=== PATIENT | male | born 1965 | race African-American/Black ===

== ENCOUNTER 2018-01-13 19:42 | Inpatient (IN) | payer OTHER ==
[~2018-01-13] VITALS: Ht 182.9 cm; Wt 76.9 kg
[~2018-01-13 19:42] MED LIST: ABILIFY; ADULT LOW DOSE81 M1 PO; AMOXICILLIN500 M1 PO; ATIVAN0.5 MG PO; B-1100 MG PO; CHLORDIAZEPOXID25 MG PO; DESYREL100 MG PO; FOLIC ACID1 MG PO; GLUCOPHAGE1000 MG; GLUCOPHAGE1000 MG PO; JANUVIA100 MG PO; LANTUS (UNITS)1 UNIT SQ; LANTUS 10100 UNITS/ SC; LANTUS 3 M100 UNITS1 SC; LISINOPRIL10 MG PO; LOMOTIL TABLET1 EACH PO; NOVOLOG 10100 UNITS/ SC; OXYCONTIN10 MG; TRAZADONE; ZOFRAN4 MG PO
[2018-01-13 20:58] LABS: BASOPHIL (%) 0 % (0-1); EOSINOPHIL (%) 0 % (0-5); HEMATOCRIT 27.8 % (38.0-50.0); HEMOGLOBIN 9.2 G/DL (12.5-16.6); IMMATURE GRANULOCYTE (%) 1.3 % (0.0-0.7); LYMPHOCYTE (%) 24.2 % (15-42); MCH 27.3 PG (29.0-34.0); MCHC 33.1 G/DL (30.0-36.0); MCV 82.5 FL (86-99); MONOCYTE (%) 8.1 % (3-12); MONOCYTE COUNT 0.3 K/uL (0-0.8); NEUTROPHIL (%) 66.4 % (45-76); NEUTROPHIL COUNT 2.6 K/uL (1.8-6.4); PLATELET COUNT 115 K/uL (156-360); RBC DIS.WIDTH-CV 14.5 % (11.8-14.6); RBC DIS.WIDTH-SD 43.4 % (39-53); RED BLOOD COUNT 3.37 M/uL (4.00-5.50)
[2018-01-13 21:09] LABS: CHLORIDE 115 mEq/L (99-109); POTASSIUM 4.7 mEq/L (3.7-5.4); SODIUM 138 mEq/L (136-147)
[2018-01-13 21:11] LABS: GLUCOSE 93 mg/dL (70-99)
[2018-01-13 21:15] LABS: CREATININE 5.6 mg/dL (0.6-1.3); GFR ESTIMATE (CALCULATED) 14 mL/min/ (58.99-99999)
[2018-01-13 21:16] LABS: UREA NITROGEN (BUN) 55 mg/dL (9-23)
[2018-01-13 21:18] LABS: TROP-I INTERPRETATION NEGATIVE; TROPONIN-I 0.09 ng/mL (0.0-0.30)
[2018-01-13 22:42] LABS: APPEARANCE CLEAR ((CLEAR)); BILIRUBIN NEGATIVE; BLOOD NEGATIVE; COLOR YELLOW ((YELLOW)); GLUCOSE (STRIP) 50; KETONES NEGATIVE; LEUKOCYTES NEGATIVE; NITRITE NEGATIVE; PROTEIN (STRIP) >=500; SPECIFIC GRAVITY 1.014 (1.000-1.030); UROBILINOGEN 0.2 MG/DL (0.2-1.0)
[2018-01-13 22:49] LABS: BACTERIA RARE /HPF; EPITHELIAL CELLS RARE /HPF; MUCUS TRACE /LPF; WHITE BLOOD CELLS 0-5 /HPF (0-5)
[2018-01-13] MEDS ORDERED: GLIPIZIDE5 MG PO (23:21)
[2018-01-13] MEDS ORDERED: NABI650T PO (23:21)
[2018-01-13] MEDS ORDERED: BYSTOLIC10 MG PO (23:21)
[2018-01-14 06:47] LABS: TROP-I INTERPRETATION NEGATIVE; TROPONIN-I 0.11 ng/mL (0.0-0.30)
[2018-01-14 07:18] VITALS: BP 181/96
[2018-01-14 11:51] VITALS: BP 189/105
[2018-01-14 11:53] LABS: BASOPHIL (%) 0 % (0-1); EOSINOPHIL (%) 0 % (0-5); HEMATOCRIT 28.8 % (38.0-50.0); HEMOGLOBIN 9.2 G/DL (12.5-16.6); IMMATURE GRANULOCYTE (%) 2.9 % (0.0-0.7); LYMPHOCYTE (%) 10.1 % (15-42); LYMPHOCYTE COUNT 0.4 K/uL (1.0-2.8); MCH 26.4 PG (29.0-34.0); MCHC 31.9 G/DL (30.0-36.0); MCV 82.8 FL (86-99); MONOCYTE (%) 1.6 % (3-12); MONOCYTE COUNT 0.1 K/uL (0-0.8); NEUTROPHIL (%) 85.4 % (45-76); NEUTROPHIL COUNT 3.3 K/uL (1.8-6.4); PLATELET COUNT 114 K/uL (156-360); RBC DIS.WIDTH-CV 14.7 % (11.8-14.6); RED BLOOD COUNT 3.48 M/uL (4.00-5.50); WHITE BLOOD COUNT 3.9 K/uL (4.1-10.2)
[2018-01-14 12:27] LABS: TROP-I INTERPRETATION NEGATIVE
[2018-01-14 12:37] LABS: CHLORIDE 112 MEQ/L (99-109); CREATININE 5.4 MG/DL (0.6-1.3); GFR ESTIMATE (CALCULATED) 14 mL/min/ (58.99-99999); GLUCOSE 139 mg/dL (70-99); POTASSIUM 5.3 MEQ/L (3.7-5.4); SODIUM 139 MEQ/L (136-147); UREA NITROGEN (BUN) 50 mg/dL (9-23)
[2018-01-14 15:56] VITALS: BP 171/100
[2018-01-14 20:03] VITALS: BP 152/90
[2018-01-15 01:02] VITALS: BP 156/90
[2018-01-15 03:52] VITALS: BP 134/76
[2018-01-15 06:00] LABS: HEMATOCRIT 25.4 % (38.0-50.0); HEMOGLOBIN 8.2 G/DL (12.5-16.6); MCH 26.5 PG (29.0-34.0); MCHC 32.3 G/DL (30.0-36.0); MCV 82.2 FL (86-99); PLATELET COUNT 108 K/uL (156-360); RBC DIS.WIDTH-CV 14.6 % (11.8-14.6); RBC DIS.WIDTH-SD 43.2 % (39-53); RED BLOOD COUNT 3.09 M/uL (4.00-5.50)
[2018-01-15 06:30] LABS: CHLORIDE 108 MEQ/L (99-109); CREATININE 5.9 MG/DL (0.6-1.3); GFR ESTIMATE (CALCULATED) 13 mL/min/ (58.99-99999); POTASSIUM 4.4 MEQ/L (3.7-5.4); SODIUM 135 MEQ/L (136-147); UREA NITROGEN (BUN) 61 mg/dL (9-23)
[2018-01-15 06:31] LABS: GLUCOSE 73 mg/dL (70-99)
[2018-01-15 09:19] VITALS: BP 142/85
[2018-01-15 13:16] VITALS: BP 140/79
[2018-01-15 16:33] VITALS: BP 162/93
[2018-01-15 20:00] VITALS: BP 172/98
[2018-01-16] VITALS (8 sets, daily range): BP systolic 138–176; BP diastolic 82–104
[2018-01-16 06:19] LABS: HEMATOCRIT 25.7 % (38.0-50.0); HEMOGLOBIN 8.1 G/DL (12.5-16.6); MCH 26.5 PG (29.0-34.0); MCHC 31.5 G/DL (30.0-36.0); PLATELET COUNT 99 K/uL (156-360); RBC DIS.WIDTH-CV 14.6 % (11.8-14.6); RED BLOOD COUNT 3.06 M/uL (4.00-5.50); WHITE BLOOD COUNT 5.1 K/uL (4.1-10.2)
[2018-01-16 06:55] LABS: CHLORIDE 110 MEQ/L (99-109); GFR ESTIMATE (CALCULATED) 13 mL/min/ (58.99-99999); GLUCOSE 95 mg/dL (70-99); POTASSIUM 4.8 MEQ/L (3.7-5.4); SODIUM 136 MEQ/L (136-147); UREA NITROGEN (BUN) 62 mg/dL (9-23)
[2018-01-16 10:30] LABS: C DIFF TOXIN NEGATIVE (NEGATIVE)
[2018-01-16 11:58] LABS: ALBUMIN 2.9 G/DL (3.2-4.8); ALKALINE PHOSPHATASE 60 IU/L (3-129); ALT (GPT) 16 IU/L (3-49); AST (GOT) 35 IU/L (2-34); DIRECT BILIRUBIN 0.1 mg/dL (0.0-0.3); TOTAL BILIRUBIN 0.2 MG/DL (0.0-1.0)
[2018-01-17] VITALS (7 sets, daily range): BP systolic 139–175; BP diastolic 82–98
[2018-01-17 02:24] LABS: UR CREATININE CONCENTRATION 106.7 MG/DL
[2018-01-17 02:30] LABS: APPEARANCE CLEAR ((CLEAR)); BILIRUBIN NEGATIVE; BLOOD SMALL; COLOR YELLOW ((YELLOW)); GLUCOSE (STRIP) 50; KETONES NEGATIVE; LEUKOCYTES NEGATIVE; NITRITE NEGATIVE; PROTEIN (STRIP) 100; SPECIFIC GRAVITY 1.013 (1.000-1.030); UROBILINOGEN 0.2 MG/DL (0.2-1.0)
[2018-01-17 02:52] LABS: BACTERIA RARE /HPF; EPITHELIAL CELLS RARE /HPF; MUCUS TRACE /LPF; UCUL ADDED? NO; WHITE BLOOD CELLS 0-5 /HPF (0-5)
[2018-01-17 10:42] LABS: CHLORIDE 110 MEQ/L (99-109); CREATININE 5.7 MG/DL (0.6-1.3); GFR ESTIMATE (CALCULATED) 13 mL/min/ (58.99-99999); GLUCOSE 126 mg/dL (70-99); POTASSIUM 4.2 MEQ/L (3.7-5.4); SODIUM 134 MEQ/L (136-147); UREA NITROGEN (BUN) 62 mg/dL (9-23)
[2018-01-18 04:18] VITALS: BP 146/85
[2018-01-18 06:27] LABS: BASOPHIL (%) 0 % (0-1); EOSINOPHIL (%) 0 % (0-5); HEMATOCRIT 24.6 % (38.0-50.0); HEMOGLOBIN 8.2 G/DL (12.5-16.6); IMMATURE GRANULOCYTE (%) 1.3 % (0.0-0.7); LYMPHOCYTE (%) 18.5 % (15-42); LYMPHOCYTE COUNT 0.9 K/uL (1.0-2.8); MCH 27.3 PG (29.0-34.0); MCHC 33.3 G/DL (30.0-36.0); MONOCYTE (%) 8.4 % (3-12); MONOCYTE COUNT 0.4 K/uL (0-0.8); NEUTROPHIL (%) 71.8 % (45-76); NEUTROPHIL COUNT 3.3 K/uL (1.8-6.4); PLATELET COUNT 82 K/uL (156-360); RBC DIS.WIDTH-CV 14.2 % (11.8-14.6); RBC DIS.WIDTH-SD 41.9 % (39-53); WHITE BLOOD COUNT 4.6 K/uL (4.1-10.2)
[2018-01-18 06:43] LABS: CHLORIDE 106 MEQ/L (99-109); CREATININE 5.6 MG/DL (0.6-1.3); GFR ESTIMATE (CALCULATED) 14 mL/min/ (58.99-99999); MAGNESIUM 1.7 mg/dl (1.3-2.7); PHOSPHORUS 4.9 mg/dL (2.5-4.9); POTASSIUM 4.3 MEQ/L (3.7-5.4); SODIUM 136 MEQ/L (136-147); UREA NITROGEN (BUN) 63 mg/dL (9-23)
[2018-01-18 06:44] LABS: GLUCOSE 75 mg/dL (70-99)
[2018-01-18 07:49] VITALS: BP 163/97
[2018-01-18 11:00] VITALS: BP 151/75
[2018-01-18 15:14] VITALS: BP 167/89
[2018-01-18 19:26] VITALS: BP 155/89
[2018-01-18 20:46] LABS: Neutrophil Cytoplasmic Aby Negative (Negative)
[2018-01-19] VITALS (7 sets, daily range): BP systolic 128–175; BP diastolic 71–98
[2018-01-19 07:28] LABS: HEMATOCRIT 24.8 % (38.0-50.0); HEMOGLOBIN 8.2 G/DL (12.5-16.6); MCH 27.3 PG (29.0-34.0); MCHC 33.1 G/DL (30.0-36.0); MCV 82.7 FL (86-99); PLATELET COUNT 93 K/uL (156-360); RBC DIS.WIDTH-CV 14.4 % (11.8-14.6); RBC DIS.WIDTH-SD 42.9 % (39-53); WHITE BLOOD COUNT 4.2 K/uL (4.1-10.2)
[2018-01-19 09:33] LABS: CHLORIDE 108 MEQ/L (99-109); CREATININE 5.8 MG/DL (0.6-1.3); GFR ESTIMATE (CALCULATED) 13 mL/min/ (58.99-99999); GLUCOSE 93 mg/dL (70-99); POTASSIUM 4.6 MEQ/L (3.7-5.4); SODIUM 136 MEQ/L (136-147); UREA NITROGEN (BUN) 68 mg/dL (9-23)
[2018-01-19 21:46] LABS: C4 COMPLEMENT 36 MG/DL (10-40)
[2018-01-20] VITALS: BP 134/89
[2018-01-20 00:32] VITALS: BP 129/63
[2018-01-20 01:42] LABS: Cryoglobulin, Qualitative None Detected (None Detected)
[2018-01-20 04:00] VITALS: BP 132/75
[2018-01-20 06:41] LABS: BASOPHIL (%) 0 % (0-1); EOSINOPHIL (%) 0 % (0-5); HEMATOCRIT 24.5 % (38.0-50.0); HEMOGLOBIN 7.9 G/DL (12.5-16.6); IMMATURE GRANULOCYTE (%) 2.5 % (0.0-0.7); LYMPHOCYTE (%) 16.9 % (15-42); LYMPHOCYTE COUNT 0.6 K/uL (1.0-2.8); MCH 26.7 PG (29.0-34.0); MCHC 32.2 G/DL (30.0-36.0); MCV 82.8 FL (86-99); MONOCYTE (%) 11.8 % (3-12); MONOCYTE COUNT 0.4 K/uL (0-0.8); NEUTROPHIL (%) 68.8 % (45-76); NEUTROPHIL COUNT 2.4 K/uL (1.8-6.4); PLATELET COUNT 95 K/uL (156-360); RBC DIS.WIDTH-CV 14.4 % (11.8-14.6); RBC DIS.WIDTH-SD 43.2 % (39-53); RED BLOOD COUNT 2.96 M/uL (4.00-5.50); WHITE BLOOD COUNT 3.6 K/uL (4.1-10.2)
[2018-01-20 07:02] LABS: ALBUMIN 2.7 G/DL (3.2-4.8); CHLORIDE 104 MEQ/L (99-109); CREATININE 5.7 MG/DL (0.6-1.3); GFR ESTIMATE (CALCULATED) 13 mL/min/ (58.99-99999); GLUCOSE 98 mg/dL (70-99); PHOSPHORUS 5.3 mg/dL (2.5-4.9); POTASSIUM 4.7 MEQ/L (3.7-5.4); SODIUM 133 MEQ/L (136-147); UREA NITROGEN (BUN) 76 mg/dL (9-23)
[2018-01-20 07:45] VITALS: BP 143/77
[2018-01-20 07:53] VITALS: BP 129/71
[2018-01-20] MEDS ORDERED: TAMSULOSIN HCL0.4 MG PO (12:07)
[2018-01-20] MEDS ORDERED: NIFEDIPINE ER60 MG PO (12:07)
[2018-01-20] MEDS ORDERED: APRESOLINE50 MG PO (12:07)
[2018-01-20] MEDS ORDERED: LASIX20 MG PO (12:16)
[2018-01-20] MEDS ORDERED: VENTOLIN HFA18 GM IH (12:18)
[2018-01-20] MEDS ORDERED: STIOLTO RESPIMAT4 GM IH (12:18)
[2018-01-20 15:25] VITALS: BP 144/80
== END 2018-01-20 16:18 | disposition home health service (06) | DRG 683 ==
LOC: EME → EDBD 19:42 → EME 19:42 → 5SOUTH 01-14 00:59 → EDOF 01-14 00:59 → ENRESERV 01-14 01:01 → 5SOUTH 01-14 07:12
PROVIDERS: Emergency Medicine; Hospitalist; Internal Medicine; Internal Medicine Nephrology; Physician Assistant Medical; Radiology Diagnostic Radiology
DX: N17.9 Acute kidney failure, unspecified (principal); I12.9 Hypertensive chronic kidney disease with stage 1 through stage 4 chronic kidney disease, or unspecified chronic kidney disease; J43.9 Emphysema, unspecified; I16.1 Hypertensive emergency; F10.10 Alcohol abuse, uncomplicated; F12.90 Cannabis use, unspecified, uncomplicated; E11.9 Type 2 diabetes mellitus without complications; F17.200 Nicotine dependence, unspecified, uncomplicated; E11.22 Type 2 diabetes mellitus with diabetic chronic kidney disease; N18.4 Chronic kidney disease, stage 4 (severe); Z79.84 Long term (current) use of oral hypoglycemic drugs; F20.9 Schizophrenia, unspecified; R80.9 Proteinuria, unspecified; Z91.19 Patient's noncompliance with other medical treatment and regimen; E87.2 Acidosis; H54.7 Unspecified visual loss; I31.3 Pericardial effusion (noninflammatory); J44.1 Chronic obstructive pulmonary disease with (acute) exacerbation; B19.20 Unspecified viral hepatitis C without hepatic coma; Z91.14 Patient's other noncompliance with medication regimen; D61.818 Other pancytopenia; E11.21 Type 2 diabetes mellitus with diabetic nephropathy
CPT/HCPCS: 71045; 71250; 74176; 76770; 77012; 78582; 80048; 80069; 80076; 81003; 82570; 82595 90; 82948; 83520 90; 83605; 83735; 84100; 84156; 84484; 85025; 85027; 85610; 85730; 86021 90; 86038; 86160; 86235; 87070; 87205; 87493; 88305; 88313 90; 88346 90; 88348 90; 93005; 93306; 94640; 94640 76; 94760; 99202; 99281; 99285; A9540; A9567; J0360; J0696; J1644; J1815; J1940; J2930; J7512

== ENCOUNTER 2018-01-24 18:13 | Inpatient (IN) | payer OTHER ==
[~2018-01-24] VITALS: Ht 180.3 cm; Wt 86.8 kg
[~2018-01-24 18:13] MED LIST changes: +APRESOLINE50 MG PO; +BYSTOLIC10 MG PO; +GLIPIZIDE5 MG PO; +LASIX20 MG PO; +NABI650T PO; +NIFEDIPINE ER60 MG PO; +STIOLTO RESPIMAT4 GM IH; +TAMSULOSIN HCL0.4 MG PO; +VENTOLIN HFA18 GM IH
[2018-01-24 19:04] LABS: HEMATOCRIT 21.9 % (38.0-50.0); MCH 27.8 PG (29.0-34.0); MCV 86.9 FL (86-99); PLATELET COUNT 104 K/uL (156-360); RBC DIS.WIDTH-CV 14.5 % (11.8-14.6); RBC DIS.WIDTH-SD 45.7 % (39-53); RED BLOOD COUNT 2.52 M/uL (4.00-5.50); WHITE BLOOD COUNT 3.8 K/uL (4.1-10.2)
[2018-01-24 19:21] LABS: ALBUMIN 2.9 g/dL (3.2-4.8)
[2018-01-24 19:22] LABS: CHLORIDE 112 mEq/L (99-109); POTASSIUM 4.9 mEq/L (3.7-5.4); SODIUM 138 mEq/L (136-147)
[2018-01-24 19:24] LABS: GLUCOSE 177 mg/dL (70-99); TOTAL PROTEIN 5.7 g/dL (6.4-8.3)
[2018-01-24 19:26] LABS: TOTAL BILIRUBIN 0.3 mg/dL (0.0-1.0)
[2018-01-24 19:27] LABS: ALKALINE PHOSPHATASE 88 IU/L (3-129)
[2018-01-24 19:28] LABS: CREATININE 6.5 mg/dL (0.6-1.3); GFR ESTIMATE (CALCULATED) 12 mL/min/ (58.99-99999)
[2018-01-24 19:29] LABS: AST (GOT) 41 IU/L (2-34); UREA NITROGEN (BUN) 81 mg/dL (9-23)
[2018-01-24 19:30] LABS: ALT (GPT) 40 IU/L (3-49)
[2018-01-24] MEDS ORDERED: FLOMAX0.4 MG PO (22:10)
[2018-01-24] MEDS ORDERED: PROCARDIA XL60 MG PO (22:11)
[2018-01-24] MEDS ORDERED: HYDRALAZINE HCL50 MG PO (22:11)
[2018-01-24] MEDS ORDERED: FUROSEMIDE20 MG PO (22:11)
[2018-01-24] MEDS ORDERED: VENTOLIN HFA18 GM IH (22:12)
[2018-01-24 22:40] VITALS: BP 156/94
[2018-01-24 23:06] LABS: FOLIC ACID (FOLATE) 4.2 NG/ML (5.0-22.0)
[2018-01-24 23:28] LABS: IRON 33 MCG/DL (35-150); TRANSFERRIN (TIBC) 221.3 mg/dL (215-380); TRANSFERRIN SATUR. 15 % (20-55)
[2018-01-24 23:50] VITALS: BP 162/86
[2018-01-24 23:53] VITALS: BP 162/86
[2018-01-25] VITALS (12 sets, daily range): BP systolic 129–175; BP diastolic 66–94
[2018-01-25 05:48] LABS: HEMATOCRIT 25.2 % (38.0-50.0); HEMOGLOBIN 7.9 G/DL (12.5-16.6); MCH 27.1 PG (29.0-34.0); MCHC 31.3 G/DL (30.0-36.0); MCV 86.6 FL (86-99); PLATELET COUNT 106 K/uL (156-360); RBC DIS.WIDTH-CV 14.4 % (11.8-14.6); RBC DIS.WIDTH-SD 45.6 % (39-53); RED BLOOD COUNT 2.91 M/uL (4.00-5.50); WHITE BLOOD COUNT 4.4 K/uL (4.1-10.2)
[2018-01-25 06:06] LABS: CHLORIDE 112 MEQ/L (99-109); CREATININE 6.2 MG/DL (0.6-1.3); GFR ESTIMATE (CALCULATED) 12 mL/min/ (58.99-99999); POTASSIUM 4.4 MEQ/L (3.7-5.4); SODIUM 138 MEQ/L (136-147); UREA NITROGEN (BUN) 73 mg/dL (9-23)
[2018-01-25 06:07] LABS: GLUCOSE 102 mg/dL (70-99)
[2018-01-26 01:30] VITALS: BP 120/77
[2018-01-26 04:30] VITALS: BP 148/76
[2018-01-26 05:34] LABS: HEMATOCRIT 27.4 % (38.0-50.0); HEMOGLOBIN 8.9 G/DL (12.5-16.6); MCH 27.8 PG (29.0-34.0); MCHC 32.5 G/DL (30.0-36.0); MCV 85.6 FL (86-99); PLATELET COUNT 103 K/uL (156-360); RBC DIS.WIDTH-CV 14.5 % (11.8-14.6); RBC DIS.WIDTH-SD 44.7 % (39-53); WHITE BLOOD COUNT 3.1 K/uL (4.1-10.2)
[2018-01-26 05:55] LABS: A/G RATIO 0.8 (1.1-1.8); ALBUMIN 2.6 G/DL (3.4-5.0); CHLORIDE 111 MEQ/L (99-109); GFR ESTIMATE (CALCULATED) 13 mL/min/ (58.99-99999); GLOBULINS 3.1 G/DL (2.3-3.5); GLUCOSE 130 mg/dL (70-99); MAGNESIUM 1.8 mg/dl (1.3-2.7); PHOSPHORUS 4.7 mg/dL (2.5-4.9); POTASSIUM 4.9 MEQ/L (3.7-5.4); SODIUM 136 MEQ/L (136-147); TOTAL PROTEIN 5.7 G/DL (6.4-8.2); UREA NITROGEN (BUN) 71 mg/dL (9-23)
[2018-01-26 06:24] LABS: ABS NEUTROPHIL COUNT 1.4; ATYPICAL LYMPHOCYTE 6.1 %; BASOPHILS 0.9 %; EOSINOPHIL ABS CT 0; LYMPHOCYTES 34.8 % (15.0-45.0); MONOCYTES 13.9 % (0-9.0); PLAT.SUFFICIENCY DECREASED; SEG.NEUTROPHILS 44.3 % (46.0-76.0)
[2018-01-26 10:28] VITALS: BP 177/95
[2018-01-26 10:59] LABS: HEPATITIS B SURFACE ANTIGEN Nonreactive
[2018-01-26 11:01] LABS: ANTI-HEPATITIS A VIRUS (IGM) Nonreactive
[2018-01-26 11:02] LABS: ANTI-HEPATITIS B CORE (IGM) Nonreactive; HIV-1/2 AB/AG COMBO Nonreactive
[2018-01-26 11:32] LABS: HEPATITIS B SURFACE ANTIGEN Nonreactive
[2018-01-26 11:37] LABS: HEPATITIS B SURFACE ANTIBODY REACTIVE
[2018-01-26 11:38] LABS: HEPATITIS C ANTIBODY REACTIVE
[2018-01-26 16:53] VITALS: BP 177/76
[2018-01-26 19:05] VITALS: BP 146/80
[2018-01-27 00:31] VITALS: BP 171/85
[2018-01-27 04:01] VITALS: BP 164/75
[2018-01-27 07:50] VITALS: BP 149/79
[2018-01-27 08:55] LABS: BASOPHIL (%) 0.3 % (0-1); EOSINOPHIL (%) 0 % (0-5); HEMATOCRIT 27.3 % (38.0-50.0); LYMPHOCYTE (%) 34.3 % (15-42); LYMPHOCYTE COUNT 1.4 K/uL (1.0-2.8); MCH 28.3 PG (29.0-34.0); MCV 85.8 FL (86-99); MONOCYTE COUNT 1.1 K/uL (0-0.8); NEUTROPHIL (%) 35.4 % (45-76); NEUTROPHIL COUNT 1.4 K/uL (1.8-6.4); NRBC (%) 1.5 /100 WBC (0-0); PLATELET COUNT 81 K/uL (156-360); RBC DIS.WIDTH-CV 14.4 % (11.8-14.6); RBC DIS.WIDTH-SD 45.1 % (39-53); RED BLOOD COUNT 3.18 M/uL (4.00-5.50)
[2018-01-27 09:14] LABS: ALBUMIN 2.7 G/DL (3.2-4.8); CHLORIDE 107 MEQ/L (99-109); GLUCOSE 109 mg/dL (70-99); PHOSPHORUS 3.3 mg/dL (2.5-4.9); POTASSIUM 4.3 MEQ/L (3.7-5.4); SODIUM 137 MEQ/L (136-147); UREA NITROGEN (BUN) 48 mg/dL (9-23)
[2018-01-27 09:27] LABS: CREATININE 4.6 MG/DL (0.6-1.3); GFR ESTIMATE (CALCULATED) 17 mL/min/ (58.99-99999)
[2018-01-27 11:21] VITALS: BP 173/88
[2018-01-27] MEDS ORDERED: NABI650T PO (13:48)
[2018-01-27] MEDS ORDERED: BYSTOLIC10 MG PO (13:48)
[2018-01-27] MEDS ORDERED: GLIPIZIDE5 MG PO (13:48)
[2018-01-27] MEDS ORDERED: LASIX40 MG PO (13:49)
[2018-01-27 14:41] LABS: ALBUMIN 2.59 G/DL (3.6-4.9); ALPHA-1 GLOBULIN 0.35 G/DL (0.15-0.40); ALPHA-2 GLOBULIN 0.97 G/DL (0.45-0.85); BETA-GLOBULIN 0.63 G/DL (0.65-1.15); GAMMA-GLOBULIN 1.16 G/DL (0.60-1.35)
== END 2018-01-27 15:02 | disposition home health service (06) | DRG 683 ==
LOC: EME 18:13 → EDOF 22:26 → 5WEST 22:26 → CANRESERV 22:28 → ENRESERV 22:28 → 5WEST 23:31
PROVIDERS: Emergency Medicine; Hospitalist; Internal Medicine Nephrology; Physician Assistant
PROC: 30233N1 Transfusion of Nonautologous Red Blood Cells into Peripheral Vein, Percutaneous Approach (ICD-10-PCS; principal; 2018-01-24)
PROC: 02HV33Z Insertion of Infusion Device into Superior Vena Cava, Percutaneous Approach (ICD-10-PCS; 2018-01-25)
PROC: 5A1D70Z Performance of Urinary Filtration, Intermittent, Less than 6 Hours Per Day (ICD-10-PCS; 2018-01-26)
DX: N17.9 Acute kidney failure, unspecified (principal); I12.0 Hypertensive chronic kidney disease with stage 5 chronic kidney disease or end stage renal disease; N18.6 End stage renal disease; E11.22 Type 2 diabetes mellitus with diabetic chronic kidney disease; E11.21 Type 2 diabetes mellitus with diabetic nephropathy; N05.1 Unspecified nephritic syndrome with focal and segmental glomerular lesions; E87.2 Acidosis; D63.1 Anemia in chronic kidney disease; J44.9 Chronic obstructive pulmonary disease, unspecified; E78.5 Hyperlipidemia, unspecified; H54.8 Legal blindness, as defined in USA; Z86.19 Personal history of other infectious and parasitic diseases; Z79.84 Long term (current) use of oral hypoglycemic drugs; F17.210 Nicotine dependence, cigarettes, uncomplicated
CPT/HCPCS: 71045; 71250; 80048; 80053; 80069; 80074; 82607; 82746; 82948; 83540; 83735; 83883 90; 84100; 84165; 84466; 85025; 85027; 86706; 86850; 86900; 86901; 86920; 87340; 87389; 93005; 99281; 99285; C1788; G0378; J0690; J0881; J1644; J1756; J1815; J2250; P9016

== ENCOUNTER 2018-02-06 13:59 | Inpatient (IN) | payer OTHER ==
[~2018-02-06] VITALS: Ht 180.3 cm; Wt 78.0 kg
[~2018-02-06 13:59] MED LIST changes: +FLOMAX0.4 MG PO; +FUROSEMIDE20 MG PO; +HYDRALAZINE HCL50 MG PO; +LASIX40 MG PO; +PROCARDIA XL60 MG PO
[2018-02-06 15:03] LABS: MCH 27.2 PG (29.0-34.0); MCHC 32.3 G/DL (30.0-36.0); MCV 84.2 FL (86-99); PLATELET COUNT 75 K/uL (156-360); RBC DIS.WIDTH-CV 13.1 % (11.8-14.6); RBC DIS.WIDTH-SD 39.8 % (39-53); RED BLOOD COUNT 3.68 M/uL (4.00-5.50); WHITE BLOOD COUNT 2.9 K/uL (4.1-10.2)
[2018-02-06 15:12] LABS: ALBUMIN 2.9 g/dL (3.2-4.8); CHLORIDE 101 mEq/L (99-109); SODIUM 139 mEq/L (136-147)
[2018-02-06 15:14] LABS: GLUCOSE 68 mg/dL (70-99); TOTAL PROTEIN 6.4 g/dL (6.4-8.3)
[2018-02-06 15:16] LABS: TOTAL BILIRUBIN 0.3 mg/dL (0.0-1.0)
[2018-02-06 15:18] LABS: ALKALINE PHOSPHATASE 80 IU/L (3-129); GFR ESTIMATE (CALCULATED) 20 mL/min/ (58.99-99999)
[2018-02-06 15:19] LABS: AST (GOT) 29 IU/L (2-34); UREA NITROGEN (BUN) 17 mg/dL (9-23)
[2018-02-06 15:20] LABS: DIRECT BILIRUBIN 0.2 mg/dL (0.0-0.3)
[2018-02-06 15:21] LABS: ALT (GPT) 14 IU/L (3-49)
[2018-02-06 15:24] LABS: TROP-I INTERPRETATION INDETERMINATE; TROPONIN-I 0.42 ng/mL (0.0-0.30)
[2018-02-06] MEDS ORDERED: FLAGYL500 MG PO (17:58)
[2018-02-06] MEDS ORDERED: METFORMIN HCL1000 MG PO (17:59)
[2018-02-06 20:10] LABS: C DIFF TOXIN NEGATIVE (NEGATIVE)
[2018-02-06 21:08] VITALS: BP 203/93
[2018-02-06 23:36] VITALS: BP 199/111
[2018-02-07 00:35] VITALS: BP 178/97
[2018-02-07 03:10] LABS: HEMATOCRIT 27.7 % (38.0-50.0); HEMOGLOBIN 9.2 G/DL (12.5-16.6); MCH 27.5 PG (29.0-34.0); MCHC 33.2 G/DL (30.0-36.0); MCV 82.7 FL (86-99); PLATELET COUNT 77 K/uL (156-360); RBC DIS.WIDTH-CV 13.1 % (11.8-14.6); RBC DIS.WIDTH-SD 39.8 % (39-53); RED BLOOD COUNT 3.35 M/uL (4.00-5.50); WHITE BLOOD COUNT 2.6 K/uL (4.1-10.2)
[2018-02-07 03:18] LABS: CHLORIDE 100 mEq/L (99-109); POTASSIUM 3.4 mEq/L (3.7-5.4)
[2018-02-07 03:19] LABS: SODIUM 138 mEq/L (136-147)
[2018-02-07 03:24] LABS: CREATININE 4.6 mg/dL (0.6-1.3); GFR ESTIMATE (CALCULATED) 17 mL/min/ (58.99-99999)
[2018-02-07 03:25] LABS: UREA NITROGEN (BUN) 21 mg/dL (9-23)
[2018-02-07 03:28] LABS: GLUCOSE 114 mg/dL (70-99)
[2018-02-07 03:33] LABS: TROP-I INTERPRETATION INDETERMINATE; TROPONIN-I 0.42 ng/mL (0.0-0.30)
[2018-02-07 03:39] LABS: TROP-I INTERPRETATION INDETERMINATE; TROPONIN-I 0.42 ng/mL (0.0-0.30)
[2018-02-07 04:14] VITALS: BP 138/72
[2018-02-07 08:37] VITALS: BP 155/78
[2018-02-07 11:32] VITALS: BP 120/72
[2018-02-07 12:34] LABS: TROP-I INTERPRETATION INDETERMINATE; TROPONIN-I 0.38 ng/mL (0.0-0.30)
[2018-02-07 15:14] VITALS: BP 120/68
[2018-02-07 20:12] VITALS: BP 152/80
[2018-02-08 00:06] VITALS: BP 145/81
[2018-02-08 04:05] VITALS: BP 151/85
[2018-02-08 08:13] LABS: BASOPHIL (%) 0 % (0-1); EOSINOPHIL (%) 0 % (0-5); HEMATOCRIT 27.7 % (38.0-50.0); HEMOGLOBIN 8.8 G/DL (12.5-16.6); IMMATURE GRANULOCYTE (%) 2.6 % (0.0-0.7); LYMPHOCYTE (%) 27.6 % (15-42); MCH 26.4 PG (29.0-34.0); MCHC 31.8 G/DL (30.0-36.0); MCV 83.2 FL (86-99); MONOCYTE (%) 32.6 % (3-12); MONOCYTE COUNT 1.1 K/uL (0-0.8); NEUTROPHIL (%) 37.2 % (45-76); NEUTROPHIL COUNT 1.3 K/uL (1.8-6.4); PLATELET COUNT 90 K/uL (156-360); RBC DIS.WIDTH-CV 13.1 % (11.8-14.6); RBC DIS.WIDTH-SD 39.5 % (39-53); RED BLOOD COUNT 3.33 M/uL (4.00-5.50); WHITE BLOOD COUNT 3.4 K/uL (4.1-10.2)
[2018-02-08 08:47] LABS: ALBUMIN 2.5 G/DL (3.2-4.8); CHLORIDE 99 MEQ/L (99-109); POTASSIUM 3.7 MEQ/L (3.7-5.4); SODIUM 134 MEQ/L (136-147)
[2018-02-08 08:53] LABS: GFR ESTIMATE (CALCULATED) 14 mL/min/ (58.99-99999); UREA NITROGEN (BUN) 27 mg/dL (9-23)
[2018-02-08 08:57] LABS: CREATININE 5.6 MG/DL (0.6-1.3); GLUCOSE 182 mg/dL (70-99)
[2018-02-08 16:15] VITALS: BP 130/82
[2018-02-08 20:16] VITALS: BP 125/62
[2018-02-09] VITALS (7 sets, daily range): BP systolic 126–1329; BP diastolic 67–97
[2018-02-09 06:12] LABS: BASOPHIL (%) 0.3 % (0-1); EOSINOPHIL (%) 0 % (0-5); HEMOGLOBIN 9.6 G/DL (12.5-16.6); IMMATURE GRANULOCYTE (%) 3.4 % (0.0-0.7); LYMPHOCYTE (%) 13.8 % (15-42); LYMPHOCYTE COUNT 0.5 K/uL (1.0-2.8); MCH 26.7 PG (29.0-34.0); MCV 83.6 FL (86-99); MONOCYTE (%) 15.7 % (3-12); MONOCYTE COUNT 0.6 K/uL (0-0.8); NEUTROPHIL (%) 66.8 % (45-76); NEUTROPHIL COUNT 2.4 K/uL (1.8-6.4); PLATELET COUNT 80 K/uL (156-360); RBC DIS.WIDTH-SD 39.7 % (39-53); RED BLOOD COUNT 3.59 M/uL (4.00-5.50); WHITE BLOOD COUNT 3.6 K/uL (4.1-10.2)
[2018-02-09 06:40] LABS: CHLORIDE 98 MEQ/L (99-109); GFR ESTIMATE (CALCULATED) 22 mL/min/ (58.99-99999); POTASSIUM 3.9 MEQ/L (3.7-5.4); SODIUM 134 MEQ/L (136-147); UREA NITROGEN (BUN) 15 mg/dL (9-23)
[2018-02-09 06:43] LABS: CREATININE 3.7 MG/DL (0.6-1.3); GLUCOSE 101 mg/dL (70-99)
[2018-02-10 03:58] VITALS: BP 144/82
[2018-02-10 07:21] VITALS: BP 135/80
[2018-02-10 08:24] LABS: BASOPHIL (%) 0.3 % (0-1); EOSINOPHIL (%) 0 % (0-5); HEMATOCRIT 30.2 % (38.0-50.0); HEMOGLOBIN 9.7 G/DL (12.5-16.6); IMMATURE GRANULOCYTE (%) 2.2 % (0.0-0.7); LYMPHOCYTE (%) 21.7 % (15-42); LYMPHOCYTE COUNT 0.7 K/uL (1.0-2.8); MCH 26.9 PG (29.0-34.0); MCHC 32.1 G/DL (30.0-36.0); MCV 83.7 FL (86-99); MONOCYTE (%) 34.1 % (3-12); MONOCYTE COUNT 1.1 K/uL (0-0.8); NEUTROPHIL (%) 41.7 % (45-76); NEUTROPHIL COUNT 1.4 K/uL (1.8-6.4); PLATELET COUNT 103 K/uL (156-360); RBC DIS.WIDTH-CV 12.8 % (11.8-14.6); RBC DIS.WIDTH-SD 39.1 % (39-53); RED BLOOD COUNT 3.61 M/uL (4.00-5.50); WHITE BLOOD COUNT 3.2 K/uL (4.1-10.2)
[2018-02-10 08:31] LABS: CHLORIDE 98 MEQ/L (99-109); GFR ESTIMATE (CALCULATED) 16 mL/min/ (58.99-99999); GLUCOSE 125 mg/dL (70-99); POTASSIUM 3.4 MEQ/L (3.7-5.4); SODIUM 132 MEQ/L (136-147)
[2018-02-10 08:35] LABS: UREA NITROGEN (BUN) 23 mg/dL (9-23)
[2018-02-10 08:36] LABS: CREATININE 4.9 MG/DL (0.6-1.3)
[2018-02-10 15:52] VITALS: BP 159/85
[2018-02-10 19:00] VITALS: BP 123/75
[2018-02-10 23:49] VITALS: BP 124/81
[2018-02-11 04:03] VITALS: BP 135/74
[2018-02-11 07:46] VITALS: BP 129/63
[2018-02-11 11:55] VITALS: BP 170/71
[2018-02-11 16:13] VITALS: BP 128/76
[2018-02-12 06:02] LABS: BASOPHIL (%) 0.7 % (0-1); EOSINOPHIL (%) 0 % (0-5); HEMATOCRIT 30.9 % (38.0-50.0); HEMOGLOBIN 9.8 G/DL (12.5-16.6); IMMATURE GRANULOCYTE (%) 4.3 % (0.0-0.7); LYMPHOCYTE (%) 32.8 % (15-42); MCH 26.5 PG (29.0-34.0); MCHC 31.7 G/DL (30.0-36.0); MCV 83.5 FL (86-99); MONOCYTE (%) 22.7 % (3-12); MONOCYTE COUNT 0.7 K/uL (0-0.8); NEUTROPHIL (%) 39.5 % (45-76); NEUTROPHIL COUNT 1.2 K/uL (1.8-6.4); PLATELET COUNT 116 K/uL (156-360); RBC DIS.WIDTH-CV 13.2 % (11.8-14.6); RBC DIS.WIDTH-SD 40.3 % (39-53)
[2018-02-12 06:30] LABS: CHLORIDE 101 MEQ/L (99-109); CREATININE 5.2 MG/DL (0.6-1.3); GFR ESTIMATE (CALCULATED) 15 mL/min/ (58.99-99999); GLUCOSE 130 mg/dL (70-99); SODIUM 136 MEQ/L (136-147); UREA NITROGEN (BUN) 25 mg/dL (9-23)
[2018-02-12 07:08] VITALS: BP 140/79
[2018-02-12 12:46] VITALS: BP 141/78
[2018-02-12 16:14] VITALS: BP 128/64
[2018-02-12 20:00] VITALS: BP 158/81
[2018-02-12 23:36] VITALS: BP 135/70
[2018-02-13 03:38] VITALS: BP 129/87
[2018-02-13 06:27] LABS: BASOPHIL (%) 0.3 % (0-1); EOSINOPHIL (%) 0 % (0-5); HEMATOCRIT 30.8 % (38.0-50.0); HEMOGLOBIN 10.1 G/DL (12.5-16.6); IMMATURE GRANULOCYTE (%) 3.1 % (0.0-0.7); LYMPHOCYTE (%) 26.6 % (15-42); MCHC 32.8 G/DL (30.0-36.0); MCV 82.4 FL (86-99); MONOCYTE (%) 21.8 % (3-12); MONOCYTE COUNT 0.8 K/uL (0-0.8); NEUTROPHIL (%) 48.2 % (45-76); NEUTROPHIL COUNT 1.7 K/uL (1.8-6.4); PLATELET COUNT 124 K/uL (156-360); RBC DIS.WIDTH-CV 13.2 % (11.8-14.6); RBC DIS.WIDTH-SD 39.8 % (39-53); RED BLOOD COUNT 3.74 M/uL (4.00-5.50); WHITE BLOOD COUNT 3.6 K/uL (4.1-10.2)
[2018-02-13 06:36] LABS: CHLORIDE 98 MEQ/L (99-109); GFR ESTIMATE (CALCULATED) 20 mL/min/ (58.99-99999); GLUCOSE 138 mg/dL (70-99); POTASSIUM 3.9 MEQ/L (3.7-5.4); SODIUM 134 MEQ/L (136-147); UREA NITROGEN (BUN) 17 mg/dL (9-23)
[2018-02-13 07:37] VITALS: BP 120/63
[2018-02-13 07:54] LABS: C DIFF TOXIN ND (NEGATIVE)
[2018-02-13 11:31] VITALS: BP 154/76
[2018-02-13 16:34] VITALS: BP 149/81
[2018-02-13 21:00] VITALS: BP 152/80
[2018-02-13 23:39] VITALS: BP 141/79
[2018-02-14 03:25] VITALS: BP 170/84
[2018-02-14 06:23] LABS: BASOPHIL (%) 0.3 % (0-1); EOSINOPHIL (%) 0.3 % (0-5); HEMATOCRIT 29.1 % (38.0-50.0); HEMOGLOBIN 9.5 G/DL (12.5-16.6); IMMATURE GRANULOCYTE (%) 3.2 % (0.0-0.7); LYMPHOCYTE (%) 33.6 % (15-42); LYMPHOCYTE COUNT 1.2 K/uL (1.0-2.8); MCH 26.8 PG (29.0-34.0); MCHC 32.6 G/DL (30.0-36.0); MCV 82.2 FL (86-99); MONOCYTE (%) 28.7 % (3-12); NEUTROPHIL (%) 33.9 % (45-76); NEUTROPHIL COUNT 1.2 K/uL (1.8-6.4); PLATELET COUNT 131 K/uL (156-360); RBC DIS.WIDTH-CV 13.3 % (11.8-14.6); RED BLOOD COUNT 3.54 M/uL (4.00-5.50); WHITE BLOOD COUNT 3.5 K/uL (4.1-10.2)
[2018-02-14 06:44] LABS: CHLORIDE 102 MEQ/L (99-109); GFR ESTIMATE (CALCULATED) 15 mL/min/ (58.99-99999); GLUCOSE 128 mg/dL (70-99); POTASSIUM 3.6 MEQ/L (3.7-5.4); SODIUM 139 MEQ/L (136-147)
[2018-02-14 06:48] LABS: CREATININE 5.2 MG/DL (0.6-1.3); UREA NITROGEN (BUN) 26 mg/dL (9-23)
[2018-02-14 09:50] VITALS: BP 180/89
[2018-02-14 11:34] VITALS: BP 161/78
[2018-02-14 15:59] VITALS: BP 157/79
[2018-02-14 20:34] VITALS: BP 137/75
[2018-02-14 23:26] VITALS: BP 139/84
[2018-02-15 04:05] VITALS: BP 127/76
[2018-02-15 07:48] VITALS: BP 116/70
[2018-02-15 11:40] LABS: CHLORIDE 102 MEQ/L (99-109); CREATININE 5.6 MG/DL (0.6-1.3); GFR ESTIMATE (CALCULATED) 14 mL/min/ (58.99-99999); GLUCOSE 210 mg/dL (70-99); POTASSIUM 3.6 MEQ/L (3.7-5.4); SODIUM 137 MEQ/L (136-147); UREA NITROGEN (BUN) 32 mg/dL (9-23)
[2018-02-15 11:52] VITALS: BP 131/76
[2018-02-15 14:28] LABS: C DIFF TOXIN ND (NEGATIVE)
[2018-02-15 16:29] VITALS: BP 131/73
[2018-02-15 19:45] VITALS: BP 115/76
[2018-02-15 23:41] VITALS: BP 148/83
[2018-02-16 03:36] VITALS: BP 152/84
[2018-02-16 06:28] LABS: BASOPHIL (%) 0.6 % (0-1); EOSINOPHIL (%) 0 % (0-5); HEMATOCRIT 28.6 % (38.0-50.0); IMMATURE GRANULOCYTE (%) 3.1 % (0.0-0.7); LYMPHOCYTE (%) 40.8 % (15-42); LYMPHOCYTE COUNT 1.5 K/uL (1.0-2.8); MCH 26.5 PG (29.0-34.0); MCHC 31.5 G/DL (30.0-36.0); MCV 84.1 FL (86-99); MONOCYTE (%) 17.2 % (3-12); MONOCYTE COUNT 0.6 K/uL (0-0.8); NEUTROPHIL (%) 38.3 % (45-76); NEUTROPHIL COUNT 1.4 K/uL (1.8-6.4); PLATELET COUNT 144 K/uL (156-360); RBC DIS.WIDTH-CV 13.4 % (11.8-14.6); RBC DIS.WIDTH-SD 40.9 % (39-53); WHITE BLOOD COUNT 3.6 K/uL (4.1-10.2)
[2018-02-16 07:01] LABS: CHLORIDE 104 MEQ/L (99-109); CREATININE 5.8 MG/DL (0.6-1.3); GFR ESTIMATE (CALCULATED) 13 mL/min/ (58.99-99999); POTASSIUM 4.3 MEQ/L (3.7-5.4); SODIUM 137 MEQ/L (136-147); UREA NITROGEN (BUN) 38 mg/dL (9-23)
[2018-02-16 07:05] LABS: GLUCOSE 97 mg/dL (70-99)
[2018-02-16 10:56] VITALS: BP 132/66
[2018-02-16 11:01] VITALS: BP 149/99
[2018-02-16 15:29] VITALS: BP 103/61
[2018-02-16 19:30] VITALS: BP 103/51
[2018-02-16 23:28] VITALS: BP 133/84
[2018-02-17 04:46] VITALS: BP 176/91
[2018-02-17 07:07] VITALS: BP 131/79
[2018-02-17 08:08] LABS: BASOPHIL (%) 0.4 % (0-1); EOSINOPHIL (%) 0 % (0-5); HEMATOCRIT 28.5 % (38.0-50.0); HEMOGLOBIN 9.1 G/DL (12.5-16.6); IMMATURE GRANULOCYTE (%) 4.9 % (0.0-0.7); LYMPHOCYTE (%) 40.7 % (15-42); MCH 26.9 PG (29.0-34.0); MCHC 31.9 G/DL (30.0-36.0); MCV 84.3 FL (86-99); MONOCYTE (%) 17.5 % (3-12); MONOCYTE COUNT 0.4 K/uL (0-0.8); NEUTROPHIL (%) 36.5 % (45-76); NEUTROPHIL COUNT 0.9 K/uL (1.8-6.4); PLATELET COUNT 186 K/uL (156-360); RBC DIS.WIDTH-CV 13.4 % (11.8-14.6); RBC DIS.WIDTH-SD 41.8 % (39-53); RED BLOOD COUNT 3.38 M/uL (4.00-5.50); WHITE BLOOD COUNT 2.5 K/uL (4.1-10.2)
[2018-02-17 08:29] LABS: ALBUMIN 2.6 G/DL (3.2-4.8); CHLORIDE 106 MEQ/L (99-109); GFR ESTIMATE (CALCULATED) 13 mL/min/ (58.99-99999); PHOSPHORUS 4.2 mg/dL (2.5-4.9); POTASSIUM 3.7 MEQ/L (3.7-5.4); SODIUM 138 MEQ/L (136-147); UREA NITROGEN (BUN) 42 mg/dL (9-23)
[2018-02-17 08:31] LABS: GLUCOSE 171 mg/dL (70-99)
[2018-02-17] MEDS ORDERED: CIPROFLOXACIN500 M1 PO (13:51)
[2018-02-17] MEDS ORDERED: BYSTOLIC5 MG PO (13:52)
[2018-02-17] MEDS ORDERED: NIFEDIPINE ER60 MG PO (13:52)
[2018-02-17 15:02] VITALS: BP 133/74
== END 2018-02-17 16:10 | disposition home or self-care (01) | DRG 252 ==
LOC: EME 13:59 → 5WEST 18:36 → EDOF 18:36 → ENRESERV 18:40 → 5WEST 20:58 → ENRESERV 02-17 07:26 → 4SOUTH 02-17 07:46
PROVIDERS: Family Medicine; Hospitalist; Internal Medicine; Internal Medicine Cardiovascular Disease; Internal Medicine Nephrology; Nurse Practitioner Family; Physician Assistant Medical
DX: T82.7XXA Infection and inflammatory reaction due to other cardiac and vascular devices, implants and grafts, initial encounter (principal); A41.59 Other Gram-negative sepsis; N18.6 End stage renal disease; Y83.2 Surgical operation with anastomosis, bypass or graft as the cause of abnormal reaction of the patient, or of later complication, without mention of misadventure at the time of the procedure; F43.20 Adjustment disorder, unspecified; Z99.2 Dependence on renal dialysis; D61.818 Other pancytopenia; R74.8 Abnormal levels of other serum enzymes; E11.22 Type 2 diabetes mellitus with diabetic chronic kidney disease; H54.8 Legal blindness, as defined in USA; I27.20 Pulmonary hypertension, unspecified; I35.1 Nonrheumatic aortic (valve) insufficiency; Z91.19 Patient's noncompliance with other medical treatment and regimen; E11.21 Type 2 diabetes mellitus with diabetic nephropathy; E87.6 Hypokalemia; I12.0 Hypertensive chronic kidney disease with stage 5 chronic kidney disease or end stage renal disease; I49.3 Ventricular premature depolarization; D63.1 Anemia in chronic kidney disease; F17.200 Nicotine dependence, unspecified, uncomplicated; F20.9 Schizophrenia, unspecified; I16.1 Hypertensive emergency; I25.2 Old myocardial infarction; Z87.01 Personal history of pneumonia (recurrent)
CPT/HCPCS: 71045; 74176; 78452; 78999; 80048; 80069; 80076; 81003; 82948; 83605; 83880; 84484; 85025; 85027; 87040; 87077; 87177; 87186; 87493; 87502; 87506; 87801; 93005; 93017; 99281; 99285; A9500; C1788; G0378; G8978 GP CJ; G8979 GP CI; J0330; J0690; J0692; J0881; J1644; J1815; J2250; J2785; J3370

== ENCOUNTER 2018-02-23 17:23 | Observation (INO) | payer OTHER ==
[~2018-02-23] VITALS: Ht 180.3 cm; Wt 72.4 kg
[~2018-02-23 17:23] MED LIST changes: +BYSTOLIC5 MG PO; +CIPROFLOXACIN500 M1 PO; +FLAGYL500 MG PO; +METFORMIN HCL1000 MG PO
[2018-02-23 18:47] LABS: HEMOGLOBIN 9.7 G/DL (12.5-16.6); MCH 26.8 PG (29.0-34.0); MCHC 32.3 G/DL (30.0-36.0); MCV 82.9 FL (86-99); PLATELET COUNT 138 K/uL (156-360); RBC DIS.WIDTH-CV 13.5 % (11.8-14.6); RBC DIS.WIDTH-SD 40.7 % (39-53); RED BLOOD COUNT 3.62 M/uL (4.00-5.50); WHITE BLOOD COUNT 3.4 K/uL (4.1-10.2)
[2018-02-23 18:58] LABS: CHLORIDE 105 mEq/L (99-109); SODIUM 140 mEq/L (136-147)
[2018-02-23 19:00] LABS: GLUCOSE 106 mg/dL (70-99); TOTAL PROTEIN 7.1 g/dL (6.4-8.3)
[2018-02-23 19:02] LABS: TOTAL BILIRUBIN 0.2 mg/dL (0.0-1.0)
[2018-02-23 19:04] LABS: ALKALINE PHOSPHATASE 97 IU/L (3-129); CREATININE 5.1 mg/dL (0.6-1.3); GFR ESTIMATE (CALCULATED) 15 mL/min/ (58.99-99999)
[2018-02-23 19:05] LABS: UREA NITROGEN (BUN) 29 mg/dL (9-23)
[2018-02-23 19:06] LABS: AST (GOT) 20 IU/L (2-34)
[2018-02-23 19:07] LABS: ALT (GPT) 7 IU/L (3-49)
[2018-02-23 19:10] LABS: TROP-I INTERPRETATION NEGATIVE; TROPONIN-I 0.14 ng/mL (0.0-0.30)
[2018-02-23] MEDS ORDERED: CIPRO500 MG PO (20:03)
[2018-02-23] MEDS ORDERED: FLAGYL500 MG PO (20:05)
[2018-02-23] MEDS ORDERED: NOVOLOG 10100 UNITS/ SC (20:06)
[2018-02-23 23:12] LABS: HDL CHOLESTEROL 56 MG/DL (Desirable>=40); NON-HDL CHOLESTEROL 67 mg/dL (Desirable<160); TOTAL CHOLESTEROL 123 mg/dL (Desirable<200)
[2018-02-23 23:35] LABS: LDL CHOLESTEROL 50 mg/dL (Desirable<100); TRIGLYCERIDES 87 MG/DL (Normal: <150)
[2018-02-24] VITALS (7 sets, daily range): BP systolic 140–195; BP diastolic 72–110
[2018-02-24 10:32] LABS: HEMOGLOBIN A1c (GLYCOHEMOGLOB) 5.7 % (Below 5.7)
[2018-02-24 10:35] LABS: BASOPHIL (%) 0.4 % (0-1); EOSINOPHIL (%) 0.8 % (0-5); HEMATOCRIT 29.9 % (38.0-50.0); HEMOGLOBIN 9.3 G/DL (12.5-16.6); IMMATURE GRANULOCYTE (%) 4.2 % (0.0-0.7); LYMPHOCYTE (%) 45.4 % (15-42); LYMPHOCYTE COUNT 1.2 K/uL (1.0-2.8); MCH 26.1 PG (29.0-34.0); MCHC 31.1 G/DL (30.0-36.0); MCV 83.8 FL (86-99); MONOCYTE (%) 14.2 % (3-12); MONOCYTE COUNT 0.4 K/uL (0-0.8); NEUTROPHIL COUNT 0.9 K/uL (1.8-6.4); PLATELET COUNT 141 K/uL (156-360); RBC DIS.WIDTH-CV 13.4 % (11.8-14.6); RBC DIS.WIDTH-SD 41.3 % (39-53); RED BLOOD COUNT 3.57 M/uL (4.00-5.50); WHITE BLOOD COUNT 2.6 K/uL (4.1-10.2)
[2018-02-24 10:48] LABS: CHLORIDE 104 MEQ/L (99-109); GFR ESTIMATE (CALCULATED) 16 mL/min/ (58.99-99999); GLUCOSE 140 mg/dL (70-99); PHOSPHORUS 4.8 mg/dL (2.5-4.9); POTASSIUM 3.9 MEQ/L (3.7-5.4); SODIUM 140 MEQ/L (136-147); UREA NITROGEN (BUN) 33 mg/dL (9-23)
[2018-02-25] VITALS (7 sets, daily range): BP systolic 104–181; BP diastolic 57–98
[2018-02-26 08:45] VITALS: BP 114/60
[2018-02-26 09:14] LABS: MCH 26.5 PG (29.0-34.0); MCHC 32.1 G/DL (30.0-36.0); MCV 82.6 FL (86-99); PLATELET COUNT 114 K/uL (156-360); RBC DIS.WIDTH-CV 13.7 % (11.8-14.6); RBC DIS.WIDTH-SD 41.2 % (39-53); RED BLOOD COUNT 3.39 M/uL (4.00-5.50); WHITE BLOOD COUNT 2.6 K/uL (4.1-10.2)
[2018-02-26 09:25] LABS: ALBUMIN 2.8 G/DL (3.2-4.8); CHLORIDE 98 MEQ/L (99-109); SODIUM 135 MEQ/L (136-147)
[2018-02-26 09:31] LABS: CREATININE 4.9 MG/DL (0.6-1.3); GFR ESTIMATE (CALCULATED) 16 mL/min/ (58.99-99999); GLUCOSE 107 mg/dL (70-99); PHOSPHORUS 3.8 mg/dL (2.5-4.9); UREA NITROGEN (BUN) 28 mg/dL (9-23)
[2018-02-26 17:58] VITALS: BP 118/73
[2018-02-26 20:00] VITALS: BP 110/55
[2018-02-26 23:22] VITALS: BP 127/65
[2018-02-27 03:51] VITALS: BP 140/73
[2018-02-27 07:20] VITALS: BP 121/67
[2018-02-27 11:15] VITALS: BP 128/58
[2018-02-27 15:39] VITALS: BP 148/79
[2018-02-27 23:14] VITALS: BP 127/74
[2018-02-28 04:23] VITALS: BP 136/76
[2018-02-28 07:15] VITALS: BP 125/68
[2018-02-28 11:50] VITALS: BP 125/61
== END 2018-02-28 14:03 ==
LOC: EME 17:23 → 4SOUTH 20:56 → EDOF 20:56 → ENRESERV 21:15 → 4SOUTH 02-24 00:57
PROVIDERS: Emergency Medicine Emergency Medical Services; Hospitalist; Internal Medicine Nephrology
PROC: 5A1D70Z Performance of Urinary Filtration, Intermittent, Less than 6 Hours Per Day (ICD-10-PCS; principal; 2018-02-24)
DX: G45.9 Transient cerebral ischemic attack, unspecified (principal); R55 Syncope and collapse; I27.20 Pulmonary hypertension, unspecified; I08.1 Rheumatic disorders of both mitral and tricuspid valves; E11.21 Type 2 diabetes mellitus with diabetic nephropathy; E11.22 Type 2 diabetes mellitus with diabetic chronic kidney disease; I13.2 Hypertensive heart and chronic kidney disease with heart failure and with stage 5 chronic kidney disease, or end stage renal disease; I50.9 Heart failure, unspecified; N18.6 End stage renal disease; R19.7 Diarrhea, unspecified; D63.1 Anemia in chronic kidney disease; Z91.14 Patient's other noncompliance with medication regimen; Z91.19 Patient's noncompliance with other medical treatment and regimen; Z99.2 Dependence on renal dialysis; H54.8 Legal blindness, as defined in USA; B19.20 Unspecified viral hepatitis C without hepatic coma; E78.5 Hyperlipidemia, unspecified; F20.9 Schizophrenia, unspecified; F17.200 Nicotine dependence, unspecified, uncomplicated; Z79.01 Long term (current) use of anticoagulants; Z79.82 Long term (current) use of aspirin; Z79.84 Long term (current) use of oral hypoglycemic drugs; F43.20 Adjustment disorder, unspecified
CPT/HCPCS: 70450; 80053; 80061; 80069; 82948; 83036; 83880; 84484; 85025; 85027; 93005; 93880; 99281; 99285; G0257; G0378; G8987 GO CJ; G8988 CI; G8989 CJ; J1644; J1815

== ENCOUNTER 2018-04-06 09:05 | Day surgery (SDC) | payer OTHER ==
[~2018-04-06] VITALS: Ht 180.3 cm; Wt 73.0 kg
[~2018-04-06 09:05] MED LIST changes: +BYSTOLIC2.5 MG PO; +CIPRO500 MG PO; +FLUID RESTRICTION PO; +GLUCOTROL5 MG PO; +PRUNE JUICE PO; +QUESTRAN PACKET4 GM PO; +TYLENOL REGULA325 MG PO
[2018-04-06] MEDS ORDERED: NOVOLOG 10100 UNITS/ SC (09:34)
[2018-04-06 09:48] VITALS: BP 145/91
[2018-04-06 14:30] VITALS: BP 173/85
[2018-04-06 15:43] VITALS: BP 147/87
== END 2018-04-06 15:47 ==
LOC: SDC 09:05
PROVIDERS: Surgery
PROC: 3E03317 Introduction of Other Thrombolytic into Peripheral Vein, Percutaneous Approach (ICD-10-PCS; principal; 2018-04-06)
PROC: 03180JD Bypass Left Brachial Artery to Upper Arm Vein with Synthetic Substitute, Open Approach (ICD-10-PCS; principal; 2018-04-06)
DX: I12.0 Hypertensive chronic kidney disease with stage 5 chronic kidney disease or end stage renal disease (principal); E11.22 Type 2 diabetes mellitus with diabetic chronic kidney disease; F17.200 Nicotine dependence, unspecified, uncomplicated; N18.6 End stage renal disease; Z99.2 Dependence on renal dialysis; Z79.84 Long term (current) use of oral hypoglycemic drugs; J44.9 Chronic obstructive pulmonary disease, unspecified; R94.31 Abnormal electrocardiogram [ECG] [EKG]
CPT/HCPCS: 82948; 84132; 87641; C1768; J0690; J1644; J2720

== ENCOUNTER 2018-04-10 06:30 | Inpatient (IN) | payer OTHER ==
[~2018-04-10] VITALS: Ht 180.3 cm; Wt 89.9 kg
[2018-04-10 07:17] LABS: BASOPHIL (%) 0.1 % (0-1); EOSINOPHIL (%) 1.1 % (0-5); EOSINOPHIL COUNT 0.1 K/uL (0-0.3); HEMATOCRIT 28.2 % (38.0-50.0); HEMOGLOBIN 9.1 G/DL (12.5-16.6); IMMATURE GRANULOCYTE (%) 1.9 % (0.0-0.7); LYMPHOCYTE (%) 17.6 % (15-42); LYMPHOCYTE COUNT 1.3 K/uL (1.0-2.8); MCH 26.6 PG (29.0-34.0); MCHC 32.3 G/DL (30.0-36.0); MCV 82.5 FL (86-99); MONOCYTE (%) 12.9 % (3-12); NEUTROPHIL (%) 66.4 % (45-76); PLATELET COUNT 101 K/uL (156-360); RBC DIS.WIDTH-CV 14.7 % (11.8-14.6); RBC DIS.WIDTH-SD 43.5 % (39-53); RED BLOOD COUNT 3.42 M/uL (4.00-5.50); WHITE BLOOD COUNT 7.5 K/uL (4.1-10.2)
[2018-04-10 07:22] LABS: INTER. NORMALIZED RATIO 1.3
[2018-04-10 07:57] LABS: ALBUMIN 3.3 G/DL (3.2-4.8); ALKALINE PHOSPHATASE 76 IU/L (3-129); AST (GOT) 9 IU/L (2-34); CHLORIDE 104 MEQ/L (99-109); GFR ESTIMATE (CALCULATED) 11 mL/min/ (58.99-99999); GLUCOSE 109 mg/dL (70-99); LIPASE 19 U/L (1.0-51.0); SODIUM 143 MEQ/L (136-147); TOTAL BILIRUBIN 0.3 MG/DL (0.0-1.0); UREA NITROGEN (BUN) 29 mg/dL (9-23)
[2018-04-10 08:00] LABS: ALT (GPT) < 3 IU/L (3-49); POTASSIUM 2.9 MEQ/L (3.7-5.4)
[2018-04-10] MEDS ORDERED: GLUCOTROL5 MG PO (10:03)
[2018-04-10] MEDS ORDERED: BYSTOLIC2.5 MG PO (10:04)
[2018-04-10] MEDS ORDERED: QUESTRAN PACKET4 GM PO (10:07)
[2018-04-10] MEDS ORDERED: FLOMAX0.4 MG PO (10:08)
[2018-04-10] MEDS ORDERED: LASIX40 MG PO (10:20)
[2018-04-10] MEDS ORDERED: BACITRACIN28.4 GM TP (10:20)
[2018-04-10] MEDS ORDERED: NABI650T PO (10:21)
[2018-04-10] MEDS ORDERED: VANCOMYCIN125 MG/2.5 PO (10:26)
[2018-04-10] MEDS ORDERED: APRESOLINE50 MG PO (10:29)
[2018-04-10] MEDS ORDERED: NORCO 5/3251 TABLET PO (10:32)
[2018-04-10] MEDS ORDERED: ZOFRAN4 MG PO (10:33)
[2018-04-10] MEDS ORDERED: TYLENOL REGULA325 MG PO (10:33)
[2018-04-10 15:30] VITALS: BP 144/80
[2018-04-10 16:04] LABS: HEMATOCRIT 29.3 % (38.0-50.0); HEMOGLOBIN 9.3 G/DL (12.5-16.6); MCV 83.5 FL (86-99)
[2018-04-10 19:54] VITALS: BP 160/81
[2018-04-11 03:52] LABS: HEMATOCRIT 26.8 % (38.0-50.0); HEMOGLOBIN 8.8 G/DL (12.5-16.6); MCHC 32.8 G/DL (30.0-36.0); MCV 82.2 FL (86-99); PLATELET COUNT 105 K/uL (156-360); RBC DIS.WIDTH-CV 14.4 % (11.8-14.6); RBC DIS.WIDTH-SD 42.5 % (39-53); RED BLOOD COUNT 3.26 M/uL (4.00-5.50); WHITE BLOOD COUNT 6.5 K/uL (4.1-10.2)
[2018-04-11 08:51] LABS: HEMATOCRIT 27.3 % (38.0-50.0); HEMOGLOBIN 8.7 G/DL (12.5-16.6); MCV 82.5 FL (86-99)
[2018-04-11 09:37] LABS: ALBUMIN 3.1 G/DL (3.2-4.8); ALKALINE PHOSPHATASE 68 IU/L (3-129); ALT (GPT) 3 IU/L (3-49); AST (GOT) 8 IU/L (2-34); CHLORIDE 104 MEQ/L (99-109); CREATININE 7.8 MG/DL (0.6-1.3); GFR ESTIMATE (CALCULATED) 9 mL/min/ (58.99-99999); GLUCOSE 109 mg/dL (70-99); POTASSIUM 3.4 MEQ/L (3.7-5.4); SODIUM 140 MEQ/L (136-147); TOTAL BILIRUBIN 0.3 MG/DL (0.0-1.0); TOTAL PROTEIN 6.4 G/DL (6.4-8.3); UREA NITROGEN (BUN) 37 mg/dL (9-23)
[2018-04-11 12:10] VITALS: BP 149/76
[2018-04-11 12:23] LABS: HEPATITIS C ANTIBODY REACTIVE
[2018-04-11 16:09] VITALS: BP 150/68
[2018-04-11 16:18] LABS: MCV 82.4 FL (86-99)
[2018-04-11 19:23] VITALS: BP 148/74
[2018-04-11 22:09] LABS: HEMATOCRIT 24.4 % (38.0-50.0); HEMOGLOBIN 8.1 G/DL (12.5-16.6); MCV 80.8 FL (86-99)
[2018-04-11 23:34] VITALS: BP 180/90
[2018-04-12 04:14] VITALS: BP 124/76
[2018-04-12 04:17] VITALS: BP 157/72
[2018-04-12 04:36] LABS: C DIFF TOXIN NEGATIVE (NEGATIVE)
[2018-04-12 06:10] LABS: BASOPHIL (%) 0.3 % (0-1); EOSINOPHIL (%) 0.9 % (0-5); EOSINOPHIL COUNT 0.1 K/uL (0-0.3); HEMATOCRIT 29.1 % (38.0-50.0); HEMOGLOBIN 9.3 G/DL (12.5-16.6); LYMPHOCYTE (%) 20.8 % (15-42); LYMPHOCYTE COUNT 1.3 K/uL (1.0-2.8); MCH 25.8 PG (29.0-34.0); MCV 80.6 FL (86-99); MONOCYTE (%) 18.4 % (3-12); MONOCYTE COUNT 1.2 K/uL (0-0.8); NEUTROPHIL (%) 57.6 % (45-76); NEUTROPHIL COUNT 3.7 K/uL (1.8-6.4); PLATELET COUNT 84 K/uL (156-360); RBC DIS.WIDTH-CV 14.4 % (11.8-14.6); RBC DIS.WIDTH-SD 41.7 % (39-53); RED BLOOD COUNT 3.61 M/uL (4.00-5.50); WHITE BLOOD COUNT 6.4 K/uL (4.1-10.2)
[2018-04-12 08:22] LABS: CHLORIDE 103 MEQ/L (99-109); POTASSIUM 3.3 MEQ/L (3.7-5.4); SODIUM 137 MEQ/L (136-147)
[2018-04-12 08:27] LABS: CREATININE 8.1 MG/DL (0.6-1.3); GFR ESTIMATE (CALCULATED) 9 mL/min/ (58.99-99999); GLUCOSE 151 mg/dL (70-99); PHOSPHORUS 5.5 mg/dL (2.5-4.9); UREA NITROGEN (BUN) 40 mg/dL (9-23)
[2018-04-12 12:50] VITALS: BP 137/80
[2018-04-12 16:12] VITALS: BP 133/76
[2018-04-12 20:18] LABS: HCV RNA (IU/mL) <15 IU/mL (())
[2018-04-12 23:29] VITALS: BP 136/72
[2018-04-13 06:05] LABS: BASOPHIL (%) 0.3 % (0-1); EOSINOPHIL COUNT 0.1 K/uL (0-0.3); HEMATOCRIT 27.6 % (38.0-50.0); HEMOGLOBIN 8.9 G/DL (12.5-16.6); IMMATURE GRANULOCYTE (%) 2.3 % (0.0-0.7); LYMPHOCYTE (%) 27.4 % (15-42); LYMPHOCYTE COUNT 1.6 K/uL (1.0-2.8); MCH 26.4 PG (29.0-34.0); MCHC 32.2 G/DL (30.0-36.0); MCV 81.9 FL (86-99); MONOCYTE COUNT 0.9 K/uL (0-0.8); NEUTROPHIL COUNT 3.1 K/uL (1.8-6.4); PLATELET COUNT 90 K/uL (156-360); RBC DIS.WIDTH-CV 14.6 % (11.8-14.6); RBC DIS.WIDTH-SD 43.1 % (39-53); RED BLOOD COUNT 3.37 M/uL (4.00-5.50); WHITE BLOOD COUNT 5.8 K/uL (4.1-10.2)
[2018-04-13 06:38] LABS: CHLORIDE 100 MEQ/L (99-109); GFR ESTIMATE (CALCULATED) 13 mL/min/ (58.99-99999); POTASSIUM 3.7 MEQ/L (3.7-5.4); SODIUM 140 MEQ/L (136-147); UREA NITROGEN (BUN) 24 mg/dL (9-23)
[2018-04-13 06:49] LABS: GLUCOSE 91 mg/dL (70-99)
[2018-04-13 08:45] VITALS: BP 168/81
[2018-04-13] MEDS ORDERED: NORCO 5/3251 TABLET PO (12:12)
[2018-04-13] MEDS ORDERED: VANCOMYCIN125 MG/2.5 PO (12:12)
[2018-04-13] MEDS ORDERED: FEOSOL325 MG PO (12:13)
[2018-04-13 14:19] LABS: HCV RNA (LOG IU/mL) <1.18 (())
[2018-04-13 15:14] VITALS: BP 137/84
[2018-04-13 23:05] VITALS: BP 179/86
[2018-04-14 00:12] VITALS: BP 106/51
[2018-04-14 04:31] VITALS: BP 142/77
[2018-04-14 05:29] LABS: BASOPHIL (%) 0.4 % (0-1); EOSINOPHIL (%) 0.4 % (0-5); HEMATOCRIT 27.1 % (38.0-50.0); HEMOGLOBIN 8.5 G/DL (12.5-16.6); LYMPHOCYTE (%) 16.2 % (15-42); LYMPHOCYTE COUNT 1.3 K/uL (1.0-2.8); MCH 25.8 PG (29.0-34.0); MCHC 31.4 G/DL (30.0-36.0); MCV 82.1 FL (86-99); MONOCYTE (%) 14.6 % (3-12); MONOCYTE COUNT 1.2 K/uL (0-0.8); NEUTROPHIL (%) 65.4 % (45-76); NEUTROPHIL COUNT 5.3 K/uL (1.8-6.4); PLATELET COUNT 117 K/uL (156-360); RBC DIS.WIDTH-CV 14.3 % (11.8-14.6); WHITE BLOOD COUNT 8.1 K/uL (4.1-10.2)
[2018-04-14 09:00] LABS: CHLORIDE 103 MEQ/L (99-109); POTASSIUM 3.4 MEQ/L (3.7-5.4); SODIUM 139 MEQ/L (136-147)
[2018-04-14 09:08] LABS: CREATININE 6.7 MG/DL (0.6-1.3); GFR ESTIMATE (CALCULATED) 11 mL/min/ (58.99-99999); UREA NITROGEN (BUN) 32 mg/dL (9-23)
[2018-04-14 09:09] LABS: GLUCOSE 198 mg/dL (70-99)
[2018-04-14 11:22] VITALS: BP 123/60
[2018-04-14 11:40] VITALS: BP 155/72
[2018-04-14 15:39] VITALS: BP 158/74
[2018-04-14 16:05] VITALS: BP 152/84
== END 2018-04-14 16:23 | DRG 371 ==
LOC: EME 06:30 → EDOF 09:10 → 3EAST 09:10 → ENRESERV 09:41 → CANRESERV 09:59 → ENRESERV 10:47 → 3EAST 14:00
PROVIDERS: Emergency Medicine; Family Medicine; Internal Medicine Gastroenterology; Internal Medicine Nephrology
PROC: 5A1D70Z Performance of Urinary Filtration, Intermittent, Less than 6 Hours Per Day (ICD-10-PCS; principal; 2018-04-12)
DX: A04.72 Enterocolitis due to Clostridium difficile, not specified as recurrent (principal); K64.9 Unspecified hemorrhoids; R15.9 Full incontinence of feces; I12.0 Hypertensive chronic kidney disease with stage 5 chronic kidney disease or end stage renal disease; N18.6 End stage renal disease; Z99.2 Dependence on renal dialysis; E11.22 Type 2 diabetes mellitus with diabetic chronic kidney disease; D63.1 Anemia in chronic kidney disease; E11.65 Type 2 diabetes mellitus with hyperglycemia; J44.9 Chronic obstructive pulmonary disease, unspecified; B18.2 Chronic viral hepatitis C; D69.6 Thrombocytopenia, unspecified; E87.6 Hypokalemia; K29.70 Gastritis, unspecified, without bleeding; F20.0 Paranoid schizophrenia; F32.9 Major depressive disorder, single episode, unspecified; H54.8 Legal blindness, as defined in USA; Z86.010 Personal history of colon polyps; F10.11 Alcohol abuse, in remission; F17.200 Nicotine dependence, unspecified, uncomplicated; Z79.4 Long term (current) use of insulin
CPT/HCPCS: 71045; 74176; 80048; 80053; 80069; 83630; 83690; 85014; 85018; 85025; 85027; 85610; 86803; 86850; 86900; 86901; 86920; 87493; 87506; 87522 90; 99281; 99285; J0881; J1644; J7030

== ENCOUNTER → 2018-06-10 | Outpatient (CLI) | payer OTHER ==
[~2018-06-10] MED LIST changes: +BACITRACIN28.4 GM TP; +FEOSOL325 MG PO; +NORCO 5/3251 TABLET PO; +VANCOMYCIN125 MG/2.5 PO
== END | disposition home or self-care (01) ==
LOC: AMB 10:00
PROC: 02PYX3Z Removal of Infusion Device from Great Vessel, External Approach (ICD-10-PCS; principal; 2018-06-10)
DX: Z45.2 Encounter for adjustment and management of vascular access device (principal); N18.6 End stage renal disease